=== PATIENT | female | born 1965 | race African-American/Black ===

== ENCOUNTER 2017-09-28 10:34 | Emergency (ER) | payer MEDICAID, OTHER ==
[~2017-09-28] VITALS: Ht 167.6 cm; Wt 77.1 kg
[2017-09-28 10:45] VITALS: BP 138/88
== END 2017-09-28 12:47 | disposition home or self-care (01) ==
LOC: ER 10:42
DX: S71.102D Unspecified open wound, left thigh, subsequent encounter (principal); Z48.01 Encounter for change or removal of surgical wound dressing; W34.09XD Accidental discharge from other specified firearms, subsequent encounter

== ENCOUNTER 2017-10-05 09:16 | Emergency (ER) | payer MEDICAID, OTHER ==
[~2017-10-05] VITALS: Ht 167.6 cm; Wt 77.1 kg
[2017-10-05 09:51] VITALS: BP 137/76
== END 2017-10-05 10:23 | disposition home or self-care (01) ==
LOC: ER 09:16
DX: S71.102D Unspecified open wound, left thigh, subsequent encounter (principal); W34.00XD Accidental discharge from unspecified firearms or gun, subsequent encounter